=== PATIENT | male | born 1955 | race Caucasian/White ===

== ENCOUNTER 2016-11-10 09:37 | Inpatient (IN) | payer OTHER ==
[2016-11-10] VITALS (8 sets, daily range): BP systolic 72–185; BP diastolic 47–120
[~2016-11-10] VITALS: Ht 172.7 cm; Wt 86.0 kg
--- NOTE | 2016-11-10 09:51 | NUR ---
PT BIBA FROM [facility] FOR SEIZURE LIKE ACTIVITY AND VOMITIING BLOOD, PT WENT TO THE [facility] AND PER MEDICS WHEN THEY ARRIVED THERE WAS >500 ML BRIGHT RED EMESIS ON THE FLOOR, PT ALSO REPORTS VOMITING PRIOR TO GOING TO [facility], PT REPORTS VOMITING LARGE AMOUNTS OF BLOOD, PER MEDICS PT HAD SEIZURE LIKE ACTIVITY PRIOR TO THEIR ARRIVAL, THEY WITNESSED THIS ON SCENE, REPORT PT AAO4, EYES WOULD ROLL BACK AND HE WOULD "TENSE UP" AND SHAKE, PT WOULD RETURN TO CONSCIOUSNESS QUICKLY; ON ED ARRIVAL PT AAO4, NO ACUTE DISTRESS, HAD AN EPISODE OF SEIZURE LIKE ACTIVITY, EYES ROLLED BACK AND ARMS TENSED UP, LAST ED APPROXIMATELY 10 SECONDS; PT HAS HX OF HEP C AND END STAGE LIVER DISEASE, PT ANSWERS ALL QUESTIONS APPROPRIATELY, CIM GUARDS AT BEDSIDE, PT CALM AND COOPERATIVE, NSR ON CINDER MAN, DR. MAYEN PERFORMED MSE
--- NOTE | 2016-11-10 09:56 | NUR ---
REPORT TO MIGUEL MENDES TO ASSUME CARE
[2016-11-10] MEDS ORDERED: LISINOPRIL40 MG PO (10:00)
[2016-11-10] MEDS ORDERED: PROPRANOLOL HCL20 MG PO (10:00)
[2016-11-10] MEDS ORDERED: ONMEL200 MG PO (10:01)
[2016-11-10] MEDS ORDERED: FUROSEMIDE40 MG PO (10:01)
[2016-11-10] MEDS ORDERED: LACTULOSE10 GM/152 PO (10:02)
[2016-11-10 10:12] LABS: BASOPHIL % 0.4 % (0-2)
[2016-11-10 10:13] LABS: PLATELET COUNT 123 x10^3mcL (130-400); RED CELL DISTRIBUTION WIDTH 15.1 % (11.5-14.5)
--- NOTE | 2016-11-10 10:13 | NUR ---
PT TAKEN TO CT VIA RASHA.
[2016-11-10 10:34] LABS: CK-MB 0.8 ng/mL (0-3.6)
[2016-11-10 10:48] LABS: CALCIUM 7.7 mg/dL (8.5-10.1); CARBON DIOXIDE 25.3 mmol/L (21-32); CHLORIDE SERUM 107 mmol/L (98-107); CREATININE SERUM 0.8 mg/dL (0.7-1.3); GFR1 > 60 mL/min; GLUCOSE SERUM 137 mg/dL (74-106); SODIUM SERUM 141 mmol/L (136-145)
[2016-11-10 10:54] LABS: ALKALINE PHOSPHATASE 74 U/L (46-116); ALT/SGPT 18 U/L (16-63); AMYLASE 42 U/L (25-115); AST/SGOT 25 U/L (15-37); BILIRUBIN TOTAL 0.91 mg/dL (0.20-1.00); HDL CHOLESTEROL 37 mg/dL (40-60); LACTIC DEHYDROGENASE (LDH) 175 U/L (100-190); LIPASE 160 IU/L (73-393); MAGNESIUM 1.6 mg/dL (1.8-2.4); T4(THYROXINE) 7.3 ug/dL (4.7-13.3)
--- NOTE | 2016-11-10 10:57 | NUR ---
RT AT BEDSIDE FOR ABG DRAW.
[2016-11-10 11:07] LABS: ALBUMIN 2.5 g/dL (3.4-5.0); CHOLESTEROL 85 mg/dL (<200)
[2016-11-10 11:18] LABS: TOTAL PROTEIN, SERUM 6.1 g/dL (6.4-8.2)
--- NOTE | 2016-11-10 11:29 | NUR ---
ASSISTED PT ONTO BEDSIDE COMMODE, REPORTS NEEDING TO HAVE A BM, PT DENIES ANY DIZZINESS
--- NOTE | 2016-11-10 11:36 | NUR ---
REPORT CALLED TO JAIMEE MENDES, SHE WILL ASSUME CARE PRIMARY RN POST TRASNFER.
--- NOTE | 2016-11-10 11:40 | NUR ---
PT HAD BM, DARK LOOSE BLOOD
[2016-11-10 12:04] LABS: microscopic required? YES; urine erythrocyte TRACE (NEGATIVE)
[2016-11-10 12:12] LABS: AMPHETAMINE QUAL UR NONE DETECTED (NEG <=1000)
--- NOTE | 2016-11-10 13:52 | NUR ---
ORDERS FROM DR MARKHAM VIA TELEPHONE AND READ BACK. SANDOSTATIN DRIP 50MCG/HR. LACTOLOSE 30 ML THREE TIMES A DAY
--- NOTE | 2016-11-10 15:53 | NUR ---
PATIENT REPORTS NAUSE AND EMESIS X1 WHILE USING THE RESTROOM
--- NOTE | 2016-11-10 15:58 | NUR ---
LAB CALLED WITH CRITICAL LACTIC ACID, 2.1.DOCTOR
--- NOTE | 2016-11-10 16:15 | NUR ---
SPOKE TO AND MADE HIM AWARE OF PT CURRENT CONDITION OF VOMITING BLOOD AND PT BECOMING MORE WEAK. WITH ORDER EGD STAT PER AND TO INCREASE SANDOSTATIN DRIP TO 100MCG/HR. CALLED NURSING STOCK TURNER FOR THE EGD STAT PROCEDURE PER 'S ORDER.
--- NOTE | 2016-11-10 16:16 | NUR ---
PATIENT RECEIVED FROM ED, ALERT AND ORIENTED, REPORTS NO NAUSEA AT THIS TIME. LUNG SOUNDS SOUNDS CTA. BS ACTIVE, REPORTS DARK BLOOD IN STOOL, LOOSE STOOL. REPORTS NO PROBLEM URINATING IV RAC AND RH WNL. NO DISTRESS NOTED AT THIS TIME. REPORTS PAIN 7/10, GIVEN PAIN MEDICATION
--- NOTE | 2016-11-10 16:25 | NUR ---
RAPID RESPONSE WAS CALLED DUE TO PT BECAME UNRESPONSIVE WHILE THE STAFF WAS AT THE BEDSIDE WHILE OBTAINING CONSENT FOR EGD PROCEDURE. CALLED TO (ATTENDING) MADE HIM AWARE THAT PT IS UNRESPONSIVE AND VOMITING BLOOD AND MADE HIM AWARE TOO THAT WILL DO EGD STAT AND HE SAID OKAY TO TRANSFER PT TO ICU. 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 IV BOLUS INITIATED DUE TO LOW BP-67/49 HR-71 MAP-55 [id number]%ON 2L/NC PER 'S ORDER WHICH HE WAS AT THE BEDSIDE DURING THIS INCIDENT. PT IS GOING TO ICU BED4. AIRAM MENDES ASSIGNED TO THIS PT GAVE REPORT TO EMETERIO CHARGE NURSE. ENDORSED CARE ACCORDINGLY.
--- NOTE | 2016-11-10 16:34 | NUR ---
RECIEVED PT FROM MST 226 B TO ICU 4 S/P RAPID RESPONSE, SEE RAPID RESPONSE RECORD IN CHART. PT AWAKE/ALERT AND SPEAKING CLEARLY AT THIS TIME. 1L NS BOLUS AND SANDOSTATION AT 50 ML/HR INFUSING AT THIS TIME. IV SITE TO RAC AND RIGHT HAND PATENT WITH NO INFILTRATION NOTED. DR. ORNELAS IN UNIT. PER DR. ORNELAS PT TO BE INTUBATED.
--- NOTE | 2016-11-10 16:37 | NUR ---
RAPID RESPONSE CALLED ON PATIENT AFTER EMESIS x2 OF LARGE AMOUNT OF RED BLOOD, [address] MARKHAM AND [address] DIETZ NOTIFIED. PATIENT TRANSFERED TO ICU, REPORT GIVEN TO EMETERIO
--- NOTE | 2016-11-10 16:54 | NUR ---
165-DR. GONZALEZ ARRIVED TO UNIT FOR INTUBATION. 1651- ETOMIDATE 10 MG GIVEN IVP PER DR. GONZALEZ VERBAL ORDERS. 1652-SUCC 100 MG GIVEN IVP PER DR. GONZALEZ VERBAL ORDERS. 165- PT SUCCESSSFULLY INTUBATED AT THIS TIME WITH POSITIVE COLOR CHANGE NOTED. ETT 7.5, 23 CM AT LIPLINE. VS POST INTUBATION: HR 99 RR 24 153/95 MAP 115 O2 100%
--- NOTE | 2016-11-10 17:10 | NUR ---
SPOKE WITH DR. DIETZ VIA TELEPHONE AT THIS TIME AND INFORMED HIM OF PT'S TRANSFER TO ICU. STANDBY TELEPHONE ORDER FOR SOFT WRIST RESTRAINTS GIVEN BY DR. DIETZ. NO FURTHER ORDERS AT THIS TIME. WILL CONT TO MONITOR.
--- NOTE | 2016-11-10 17:13 | NUR ---
PT WITH NO SEDATION AT THIS TIME, PENDING SEDATION ORDER FROM DR. ORNELAS. PT AGGITATED AND REACHING FOR ETT. BILAT SOFT WRIST RESTRAINTS APPLIED AT THIS TIME. WILL CONT TO MONITOR CLOSELY.
--- NOTE | 2016-11-10 17:21 | NUR ---
ATIVAN DRIP INITIATED AT THIS TIME PER PROTOCOL. ATIVAN DRIP INFUSING AT 1MG/HR AT THIS TIME. WILL CONT TO MONITOR AND TITRATE NEEDED. PT IN CLEAR VIEW OF NURSES STATION.
--- NOTE | 2016-11-10 17:48 | NUR ---
DR. MARKHAM AND GI TEAM AT BEDSIDE FOR EGD. PT BOLUSED WITH ATIVAN 1MG IV PER [address]. MARKHAM'S VERBAL ORDERS. WILL CONT TO MONITOR.
--- NOTE | 2016-11-10 18:08 | NUR ---
REPORT GIVEN TO STACI MENDES FOR CONTINUITY OF CARE AT THIS TIME.
--- NOTE | 2016-11-10 18:08 | NUR ---
RECEIVED REPORT FROM CINTHYA STORM, ALL QUESTIONS ADDRESSED, WILL ENDORSE CARE. DR MARKHAM AT BEDSIDE PERFORMING EGD, WILL CONTINUE TO MONITOR
--- NOTE | 2016-11-10 19:26 | NUR ---
PT ON VENT PRESSURE/VENT MODE FIO2 100, VT 550, PEEP 5, RR 14. SANDOSTATIN AND ATIVAN INFUSING. PT RESPONDS TO PAINFUL STIMULI, PUPILS 2MM SLUGGISH. GENERALIZED WEAKNESS, FULL PASSIVE ROM, DAN ACTIVE DUE TO SOFT RESTRAINTS. NO S/S OF HEADACHE. TRACHEA MIDLINE, NO DRAINAGE EENT, NO COUGH OR SMALL SECRETIONS SUCTIONED BLOOD TINGED. ORAL CARE PROVIDED. RESPIRATIONS EQUAL AND UNLABORED. LUNGS RHONCHI BUL, DIM BLL. HR 89, BP 151/119, MAP 133, CHEST WALL STABLE, S1S2 AUSCULTATED, NO CP DIZZINESS, OR SYNCOPE. SKIN APPROPRIATE FOR ETHNICITY, WARM AND DRY, CAP REFILL <3 PULSES MODERATE, NO EDEMA NOTED. NO CONTRACTURES OR DEFORMITIES. NPO, NO N/V. ABD FIRM ROUND NONTENDER, NO BM. NO PENIAL EDEMA OR DRAINAGE. UNABLE TO ASSESS MENTAL STATUS. WILL CONTINUE TO MONITOR.
--- NOTE | 2016-11-10 19:55 | NUR ---
ATIVAN TITRATED TO 4MG, WILL CONTINUE TO MONITOR
--- NOTE | 2016-11-10 19:57 | NUR ---
PT VOMMITED X2 BLOODY, PT CLEANED GOWN AND LINEN CHANGED, ZOFRAN AND MORPHINE ADMINISTERED, WILL CONTINUE TO MONITOR.
--- NOTE | 2016-11-10 20:41 | NUR ---
FIO2 TITRATED TO 60, RT AT BEDSIDE, WILL CONTINUE TO MONITOR
--- NOTE | 2016-11-10 22:18 | NUR ---
BP LOW DR DIETZ NOTIFIED, TELEPHONE ORDER NS 500ML BOLUS, D5NS @100ML/HR, DC D5 1/2 @ 40ML/HR, WILL CONTINUE TO MONITOR.
--- NOTE | 2016-11-10 23:45 | NUR ---
PT HAD DARK LOOSE BLOODY STOOL, WILL CONTINUE TO MONITOR
[2016-11-11] VITALS (18 sets, daily range): BP systolic 85–195; BP diastolic 45–110
--- NOTE | 2016-11-11 02:50 | NUR ---
20g IV STARTED L HAND, PATENT AND FLUSHING, WILL CONTINUE TO MONITOR.
--- NOTE | 2016-11-11 03:23 | NUR ---
1 UNIT PRBC'S INFUSING, PER ORDERS, NO S/S OF ADVERSE RX, WILL CONTINUE TO MONITOR.
--- NOTE | 2016-11-11 03:41 | NUR ---
ATIVAN TITRATED TO 10ML/HR, WILL CONTINUE TO MONITOR
--- NOTE | 2016-11-11 05:24 | NUR ---
F/C INSERTED, LASIX ORDERED AFTER BLOOD TRANSFUSION COMPLETES, WILL CONTINUE TO MONITOR.
--- NOTE | 2016-11-11 05:55 | NUR ---
PRBC FINISHED INFUSING, NO S/S OF REACTION, LASIX GIVEN ORDERED AFTER INFUSION, WILL CONTINUE TO MONITOR.
--- NOTE | 2016-11-11 07:05 | NUR ---
REPORT GIVEN TO CINTHYA VILLA, ALL QUESTIONS ADDRESSED, WILL ENDORSE CARE
--- NOTE | 2016-11-11 07:10 | NUR ---
PAULA RECIEVED NOC SHIFT CINTHYA SMALL, UPDATED PROVIDED ALL QUESTIONS ANSWERED ALL CONCERNS ADDRESSED. WILL ASSUME CARE AND ASSESS PT SHORTLY.
--- NOTE | 2016-11-11 07:20 | NUR ---
PATIENT IS NOVERBAL DUE TO INTUBATION, EYES OPEN TO PAINFUL STIMULI, LOCALIZES TO PAIN, PUPILS 3MM BRISK BILATERAL, NO HX OF ALZHEIMERS OR CVA. PT IS SEDATED ON ATIVAN AT 1MG/HR. RSS OF 1 NOTED. PATIENT IS ORALLY INTUBATED, NO SCLERAL EDEMA NOTED, NO IJ INPLACE, TRACHEA MIDLINE. NGT IN PLACE AGAINST L NARE. ETT IS 7.5, 23LL, PATIENT IS ON VENT ON PRVC WITH THE FOLLOWING SETTINGS RATE OF 14, Vt 550, PEEP 5, FIO2 60, LUNG SOUNDS ARE FINE CRACKLES BILATERALLY. CHEST RISE SYMMETRICALLY. S1 AND S2 NOTED PATIENT IS IN NSR, CHEST WALL IS STABLE. SKIN COLOR IS CONSISTENT WITH ETHNICITY, SKIN IS WARM AND DRY, CAP REFILL IS <3 SEC TO ALL EXTREMITIES, PERIPHERAL PULSES ARE MODERATE TO BUE, WEAK TO BLE. NO EDEMA NOTED. PATIENT HAS GENERALIZED WEAKNESS. ACTIVE/LIMITED ROM TO ALL EXTRIMITIES, SOFT WRIST RESTRAINTS TO BUE, HANDCUFF NOTED TO BLE, NO OBVIOUS CONTRACTURE/DEFORMITIES NOTED. PT IS TURNED Q2. PATIENT IS NPO AT THIS TIME, NO N/V NOTED AT THIS TIME. BOWEL SOUNDS ACTIVE IN ALL 4 QUADRANTS, ABDOMEN IS SOFT AND ROUND. BLOODY STOOL NOTED AT THIS TIME. PATIENT HAS BAE IN PLACE, NO URIN NOTED. NO SCROTAL EDEMA OR PENIL DISCHARGE NOTED. SKIN IS INTACT, PT HAS POOR FAMILY DYNAMICS AND CURRENTLY INCARCERATED. UNABLE TO FULLY ASSESS DUE TO INTUBATION.
--- NOTE | 2016-11-11 07:47 | NUR ---
SPOKE WITH ROSALEE IN GI LAB AND ASKED FOR DR MARKHAM TO CALL UNIT ONCE HE ARRIVES TO REPORT CXR RESULTS. AWAITING RETURN PHONE CALL AT THIS TIME.
[2016-11-11 07:48] LABS: CALCIUM 7.1 mg/dL (8.5-10.1); CARBON DIOXIDE 22.3 mmol/L (21-32); CHLORIDE SERUM 111 mmol/L (98-107); CREATININE SERUM 0.9 mg/dL (0.7-1.3); GFR1 > 60 mL/min; GLUCOSE SERUM 157 mg/dL (74-106); POTASSIUM SERUM 4.7 mmol/L (3.5-5.1); SODIUM SERUM 140 mmol/L (136-145)
[2016-11-11 07:52] LABS: BASOPHIL % 0.8 % (0-2)
[2016-11-11 07:55] LABS: RED CELL DISTRIBUTION WIDTH 14.9 % (11.5-14.5)
[2016-11-11 07:56] LABS: PLATELET COUNT 79 x10^3mcL (130-400)
--- NOTE | 2016-11-11 08:00 | NUR ---
SPOKE WITH DR MARKHAM AND PROVIDED PATIENT UPDATE. DISCUSSED RESULTS OF CHEST XRAY. NEW ORDERS RECEIVED. WILL CARRY OUT ORDERS. WILL CONTINUE TO MONITOR.
--- NOTE | 2016-11-11 08:20 | NUR ---
[facility] FOR [facility] AND BREATHING TREATMENT.
--- NOTE | 2016-11-11 08:25 | NUR ---
TITRATED FIO2 TO 50% RN WARREN AWARE, WILL CONTINUE TO MONITOR.
--- NOTE | 2016-11-11 08:27 | NUR ---
ATIVAN INCREASED TO 2 MG/HR DUE TO PATIENT BEING INCREASINGLY RESTLESSS AND MOVING LIMBS REPEATEDLY.
--- NOTE | 2016-11-11 09:20 | NUR ---
PATIENT WITH HR 139-140. SPOKE WITH DR LEYVA AND REPORTED. NEW ORDERS RECEIVED. ADMINISTER ATIVAN 1 MG IVP. LEVOPHED TITRATED TO 2 MCG AT THIS TIME FOR BP 138/69. WILL CONTINUE TO MONITOR.
--- NOTE | 2016-11-11 10:10 | NUR ---
TITRATED FIO2 TO 40% RN WARREN AWARE, WILL CONTINUE TO MONITOR.
--- NOTE | 2016-11-11 10:30 | NUR ---
DR. MUÑOZ BEDSIDE. ATIVAN TO BE DECREASED TO 1 MG/HR. ULTRASOUND BLE TO BE DONE THEN SCD'S TO BE PLACED. FENT AND VERSED TO BE ORDERED. ATIVAN TO BE DC'D.
--- NOTE | 2016-11-11 10:30 | NUR ---
DR. MUÑOZ AT BED SIDE AND PLACED PT ON PSV 12 CPAP 5 WITH RN WARREN AND MYSELF AT BED SIDE, VERBAL ORDER GIVEN FOR ABG IN ONE HOUR AND WITH WEANING PARAMETERS TO FOLLOW. PT IN NO RESP DISTRESS ON PSV 12 CPAP, WILL CONTINUE TO MONITOR.
--- NOTE | 2016-11-11 11:00 | NUR ---
PER TONI, BAE TO BE ADVANCED. BLADDER SCANNER DONE AND 200 ML OF CC NOTED.
--- NOTE | 2016-11-11 12:00 | NUR ---
200 ML OF BLOODY URINE NOTED, BLADDER SCANNER SHOWS 15 ML NOW.
--- NOTE | 2016-11-11 14:38 | NUR ---
ULTRASOUND BEDSIDE FOR BLE ARTERIAL AND VENOUS.
--- NOTE | 2016-11-11 16:03 | NUR ---
Initial Nutrition Assessment Dx: Endstage liver disease PMHx: Hepatitis C, Hyperlipedemia, Anemia, Cirrhosis, PSHx:none reported Labs: (11/11) BH, Ca:7.1L, Lactic acid:2.1H, H/H:8/24L (11/10) Alb:2.5L, HDL: 37L, M.6L, Ammonia: 31 WNL Meds: Cephulac, D5NS, Erythromycin, Protonix, Zofran Diet: NPO due to GI bleeding PO Intake:no PO intake recorded Ht: 68in,5'8" Wt: 190#,86.18kg BMI:28.9kg/m2 (overweight) IBW: 154#,70kg %IBW:123 % UBW:unable to obtain Age:61 y/o male Food Allergies: unable to obtain Skin:intact Giovanni:15 Edema:None GI:active bowel souds. Last BM: 11/11 bloody stool Pt admitted with GI bleed, end stage liver/cirrhosis,anemia secondary to blood loss, metabolic encephalopathy r/o seizure, pneumonia and ascites per doctor's note. During visit, observed pt +intubated to vent support with NGT to left nare, sedated on Ativan. Per RN, pt is NPO due to GI bleed. Pt had an EGD done yesterday with varicies banded. Pt is till passing bloody stool. Pt's NGT is in esophagus, per Dr. Jasmine. Problem with: N:No V: No D:No C:No Problems with: Chewing+swallowing: pt with NGT Current appetite: N/A Recent wt change:unable to obtain %wt change:N/A Vitamin/Supplement use: unable to obtain Special diet at home:pt incarcerated Physical activity: unable to obtain Education: not appropriate at this time due to pt intubated Estimated Nutritional Needs Based on actual body weight 86kg Ventilator in L/rafa:11.3. Temperature: 37.2 C Energy: 1923kcalkcal/d ([id number]) Protein:69-103 g/d (.8-1.2g/kg for cirrhosis with encephalopathy) Fluid: 1.2-1.5L/day for ascites or per doctor Nutrition Diagnosis 1. Inadequate oral intake related to s/p intubation secondary to airway protection as evidenced by no TF order initited. Intervention 1. Consider advancing diet per MD if /when medically appropriate 2.Enteral nutrition support is not appropriate at this time due to NGT in esophagus. 3.If/when medically feasible, and if nutrition support is warrented. Consider initiation of TF of Nutren Pulomonary via NGT at goal rate of 50ml/hr. This provides 1800kcal (meets 94% caloric needs) and 82g pro (meets 80% pro needs) and 938ml fluid. Monitor/Evaluate Goal: NPO<5-7 days, diet advancement Monitor: NPO status, diet advancement, Labs, GI function F/U in 2-3 days as high risk: 11/13-
--- NOTE | 2016-11-11 16:30 | NUR ---
TITRATED FIO2 TO 35% RN WARREN AWARE, WILL CONTINUE TO MONITOR.
--- NOTE | 2016-11-11 17:05 | NUR ---
PATIENT BLOOD PRESSURE 82/59(67). BAE REMOVED AND BLOODY FLUID NOTED TO BE COMING FROM PENIS. VERSED DECREASED TO 2 MG/HR AND FENT AT 2 MCG/KG/HR.
--- NOTE | 2016-11-11 17:09 | NUR ---
NITRO REMOVED AT THIS TIME DUE TO BP.
--- NOTE | 2016-11-11 17:11 | NUR ---
SPOKE WITH DR DIETZ AND REPORTED APPROX. 500-600 ML OF YEIMI RED COLORED DRAINAGE FROM BAE CATHETER. BAE REMOVED AT THIS TIME WITH LARGE CLOT NOTED AT END OF TIP. NEW ORDERS RECEIVED AT THIS TIME. WILL CONTINUE TO MONITOR.
--- NOTE | 2016-11-11 18:07 | NUR ---
FENTANYL LOWERED TO 1.5 MCG/KG/HR AND VERSED DECREASED TO 1 MG/HR DUE TO BP 83/57.
[2016-11-11 18:22] LABS: PLATELET COUNT 106 x10^3mcL (130-400); RED CELL DISTRIBUTION WIDTH 15.2 % (11.5-14.5)
--- NOTE | 2016-11-11 18:25 | NUR ---
PATIENT'S WBC 23.1 (TRENDING UP). TELEPHONE DR DIETZ AND REPORTED. NEW ORDERS RECEIVED FOR DR MARCANO CONSULT. WILL CONTINUE TO MONITOR.
--- NOTE | 2016-11-11 18:35 | NUR ---
PLACED PT BACK ON FULL SUPPORT VENT MODE PRVC CINTHYA KELLEY AWARE. PRVC VENT SETTING REMAIN UNCHANGED FROM INITIAL VENT CHECK THIS MORNING.
[2016-11-11 18:36] LABS: BAND NEUTROPHIL 3 % (0-10); BASOPHIL 0 % (0-2); METAMYELOCTE 2 % (0-2); MONOCYTE 1 % (0-7); SEGMENTED NEUTROPHILS 91 % (37-75)
[2016-11-11 18:40] LABS: PLATELET MORPHOLOGY PLATELETS DECREASED; ovalocyte/elliptocyte 1+; rbc morphology (normal/abnorm) ABNORMAL (NORMAL)
--- NOTE | 2016-11-11 19:05 | NUR ---
RECEIVED REPORT FROM CINTHYA KELLEY. ALL QUESTIONS AND CONCERNS ADDRESSED AT THIS TIME. PT IS ICU BED 4 IN SEMI MANDUJANO. ETT AND DOBB HELIO IN PLACE AND SECURE. IV'S IN THE RT HAND AND FA, PATENT AND FLUSHING WELL. PT IS ON QUALITY ASSURANCE COORDINATOR AND VS STABLE AT THIS TIME. PT IS ON SEDATION FENT AND VERSED. WILL CONTINUE TO MONITOR. BED LEFT IN THE LOWEST POSITION AND CALL LIGHT LEFT IN REACH. SKILLED NURSING GAURDS AT BEDSIDE.
--- NOTE | 2016-11-11 19:21 | NUR ---
REPORT GIVEN TO NOC SHIFT CINTHYA BAH. UPDATES PROVIDED, ALL QUESTIONS ANSWERED ALL CONCERNS ADDRESSED. WILL ENDORSE CARE.
--- NOTE | 2016-11-11 19:44 | NUR ---
DR BEVERLY AT BEDSIDE TO INSERT BAE. PATENT AND DRAINING TO GRAVITY.
--- NOTE | 2016-11-11 20:07 | NUR ---
FENT TITRATED DOWN FROM 1.5 MCG TO 0.5MCG. RSS 5.
--- NOTE | 2016-11-11 20:13 | NUR ---
RT BENSON AT BEDSIDE FOR BREATHING TX.
--- NOTE | 2016-11-11 20:28 | NUR ---
DR FLANNERY CALL UNIT. ALL QUESTIONS AND CONCERNS ADDRESSED.
--- NOTE | 2016-11-11 22:10 | NUR ---
VERSED TITRATED DOWN 0.5MG TO 0.25MG. RSS 5.
--- NOTE | 2016-11-11 22:31 | NUR ---
FENT TITRATED DOWN FROM 0.5MCG TO 0.25MCG. RSS 5.
--- NOTE | 2016-11-11 22:34 | NUR ---
DR FLANNERY AT BEDSIDE. ALL QUESTIONS AND CONCERNS ADDRESSED AT THIS TIME. ORDERED VANCOMYCIN 1GM STARTING AND PHARMACY TO FOLLOW.
--- NOTE | 2016-11-11 23:00 | NUR ---
FENT TITRATED UP FROM 0.25MG TO 0.5MCG, RSS 2. VERSED TITRATED UP FROM 0.25MG TO 0.5MG, RSS 2.
[2016-11-12] VITALS (16 sets, daily range): BP systolic 80–123; BP diastolic 50–76
--- NOTE | 2016-11-12 02:06 | NUR ---
REPORT GIVEN TO CINTHYA JENKINS, ALL QUESTIONS AND CONCERNS ADDRESSED AT THIS TIME. ALL CARE ENDORSE.
[2016-11-12 05:43] LABS: CALCIUM 7.2 mg/dL (8.5-10.1); CREATININE SERUM 1.7 mg/dL (0.7-1.3); POTASSIUM SERUM 4.2 mmol/L (3.5-5.1)
[2016-11-12 05:51] LABS: BASOPHIL % 0.4 % (0-2)
[2016-11-12 05:52] LABS: PLATELET COUNT 82 x10^3mcL (130-400); RED CELL DISTRIBUTION WIDTH 15.6 % (11.5-14.5)
[2016-11-12 05:54] LABS: rbc morphology (normal/abnorm) ABNORMAL (NORMAL)
--- NOTE | 2016-11-12 06:00 | NUR ---
PATIENT IS RESTLESS, CONTINOUSLY TAPPING ON SIDERAIL, FREQUENTLY MOVING, FENT TITRATED TO 0.89 MCG/KG/HR, AND VERSED 0.9 MG/HR. WILL CONTINUE TO MONITOR.
--- NOTE | 2016-11-12 07:20 | NUR ---
REPORT GIVEN TO MIN RN, ALL CONCERNS AND QUESTIONS ADDRESSED. ALL CARE ENDORSED.
--- NOTE | 2016-11-12 07:30 | NUR ---
RECIEVED REPORT FROM AFUA MENDES AT [facility]. WILL CONTINUE CARE.
--- NOTE | 2016-11-12 07:52 | NUR ---
PATIENT WITH LOW BP 79/57 MAP 65. CLONADINE TOPICAL PATCH REMOVED FROM LEFT DELTOID AT THIS TIME. WILL CONTINUE TO MONITOR.
--- NOTE | 2016-11-12 08:00 | NUR ---
PT IS SEDATE FENTANYL AT 0.89MCG/KG/HR, VERSED AT 0.9MG/HR RSS 5. PT REPONSE TO TACTILE RESPONSE. GCS OF 8. BL PUPILS EQUAL AND NONREACTIVE TO LIGHT 1MM, FIXED. SCLEARA EDEMA TO BL EYES. HELIO TO L NARES IN PLACE. NO DRRAINAGE NOTED FROM EENT. S12 PRESENT, NO S/S OF CHEST PAIN. 7.5 ETT TO PRVC AC VENT. ON 35%FIO2, LPM 24, RATE 14, VT 550, PEEP 5. VAP CARE PROVIDED AND SUCTIONED PT MODERATE YELLOWISH PHLEGM OUTPUT. FINE CRACKLE TO BL BASES OF LUNGS AND DIMINISH LUNG SOUNS TO BL UPPER LOBES. SYMMETRIC CHEST RISE. NO SIGNS OF SOB OR ACUTE DISTRESS. BS HYPOACTIVE X4, ABD DISTENDED AND FIRM. NO SIGNS OF FACIAL GRIMACING WHEN PALPATING ABD. PT HAS COFFEE GROUND BM. PT HAS BRIGHT RED PENILE DISCHARGE. BAE CATH DRAINING WELL BY GRAVITY, TEA COLOR URINE. PT HAS BLOOD TRANSFUSING AT 150ML/HR AND SANDOSTATIN INFUSING AT 50ML/HR TO RFA. IV SITE WNL. BED AT LOW AND CALL LIGHT WITHIN REACH. 2 GAURDS AT BEDSIDE.
--- NOTE | 2016-11-12 08:10 | NUR ---
PT IS RESTLESS TIATRATE VERSED TO 1MG/HR AND TIATRATE FENTANYL TO 1MCG/KG/HR. BP 93/56 MAP 70.
--- NOTE | 2016-11-12 08:22 | NUR ---
DR. MARKHAM AT BEDSIDE ASSESSING PT AT THIS TIME.
--- NOTE | 2016-11-12 08:28 | NUR ---
RUBY RT AT BEDSIDE IMPLEMENTING BREATHING TX.PT TOLERATING WELL.
--- NOTE | 2016-11-12 08:40 | NUR ---
PLACED PT ON CPAP TRIALS WITH PSV 12 [address] CPAP [address] TONI MON, RN CHEL AND CINTHYA RAYA MADE AWARE. WILL CONTINUE TO MONITOR.
--- NOTE | 2016-11-12 08:46 | NUR ---
SPOKE WITH DR MARKHAM AND REPORTED LOW BP AND INFORMED HIM THAT CLONADINE PATCH REMOVED THIS AM.
--- NOTE | 2016-11-12 09:53 | NUR ---
RUBY RT AT BEDSIDE TO ADJUST VENT SETTING TO CPAP. PT TOLERATING WELL, NO SIGNS OF SOB OR ACUTE DISTRESS.
--- NOTE | 2016-11-12 09:55 | NUR ---
BLOOD TRANSFUSION COMPLETED. BP 85/52 HR 87 TEMP 97.6 TE, RR 14, 100% PO2SAT. NO SIGNS OF CHILLS OR ADVERSE REACTIONS.
--- NOTE | 2016-11-12 10:19 | NUR ---
PT TOLERATING CPAP WELL 100%O2SAT. NO SIGNS OF SOB OR ACUTE DISTRESS. SYMMETRIC CHEST RISE.
--- NOTE | 2016-11-12 10:47 | NUR ---
START INFUSION OF SECOND UNIT OF BLOOD AT 1035. PT HAS NO SIGNS OF CHILLS OR ADVERSE REACTION. WILL CONTINUE TO MONITOR.
--- NOTE | 2016-11-12 11:50 | NUR ---
PT IS SEDATE WITH FENTANYL AT 1MCG/KH/HR AND VERSED AT 1MG/HR RSS 5. BL PUPILS EQUAL AND REACTIVE TO LIGHT 2MM, SLUGGISH. SCLERA EDEMA TO BL EYES. NO DRAINAGE NOTED FROM EENT. TRACHEA AT MIDLINE, NO SIGNS OF JVD. DOBB HELIO IS IN PLACE TO L NARES. 7.5 ETT TO VENT. PT ON AC MODE AT THIS TIME. CPAP SETTINGS AT 35% FIO2, LPM 24, RATE 8, VT 550, PT'S VT 870, PEEP 5, PRESSURE SUPPORT 12. VAP CARE PROVIDED. SUCTION MOD AMOUNT OF BLOOD TINGED PHLEGM. SYMMETRIC CHEST RISE. CRACKLES TO BL BASES OF LUNGS AND DIMINISH TO BL UPPER LOBES. NO SIGNS OF SOB OR ACUTE DISTRESS. BS HYPOACTIVE X4, ABD IS DISTENDED AND FIRM. NO SIGNS OF FACIAL GRIMACING WHEN PALPATING ABD. BRIGHT RED PENILE DISCHARGE. BAE CATH DRAINING WELL BY GRAVITY, TEA COLOR URINE. EDEMA NOTED TO BLE, ELEVATED WITH 1 PILLOW TO DECREASE SWELLING. ELEVATED WITH [address] BED AT LOW AND CALL LIGHT WITHIN REACH. 2 GUARDS AT BEDSIDE.
--- NOTE | 2016-11-12 13:15 | NUR ---
DR MUÑOZ AT BEDSIDE TO ASSESS PATIENT. UPDATES PROVIDED INCLUDING PATIENT WITH ONGOING SEIZURE ACTIVITY.
--- NOTE | 2016-11-12 13:25 | NUR ---
AT BEDSIDE TO ASSESS AND UPDATE PLAN OF CARE.
--- NOTE | 2016-11-12 13:30 | NUR ---
DR DIETZ AT BEDSIDE. PATIENT UPDATE GIVEN INCLUDING PATIENT WITH ONGOING SEIZURE ACTIVITY. NEW ORDERS RECEIVED. WILL CARRY OUT ORDERS. WILL CONTINUE TO MONITOR.
--- NOTE | 2016-11-12 14:15 | NUR ---
RUBY RT AT BEDSIDE. PT IS BACK ONTO AC MODE 35%FIO2, RATE 14, VT 550, PEEP 5.
--- NOTE | 2016-11-12 14:17 | NUR ---
DR. KIMBALL AND DR. RAM AT BEDSIDE [facility] STERILE TECHNIQUES FOR CENTRAL LINE INSERTIONS.
--- NOTE | 2016-11-12 14:54 | NUR ---
TIME OUT AT BEDSIDE, CONFIRMED PT'S NAME, ID#, [facility] SITE. DR. BRADSHAW AND DR. RAM AND [employer] TE[employer]ER AT BEDSIDE.
--- NOTE | 2016-11-12 16:02 | NUR ---
PORTABLE XRAY AT BEDSIDE TO CONFIRM PLACEMENT.
--- NOTE | 2016-11-12 16:19 | NUR ---
RUBY RT AT BEDSIDE IMPLEMENTING BREATHING TX. PT TOLERATING WELL, NO SIGNS OF SOB OR ACUTE DISTRESS.
--- NOTE | 2016-11-12 16:48 | NUR ---
PT IS SEDATED WITH FENTANYL AT 0.75MCG/KG/HR AND VERSED AT 1MG/HR. PT WITHDRAWLS FROM PAINFUL STIMULIS. GCS 8. BL PUPILS EQUAL AND REACTIVE TO LIGHT 2MM, SLUGGISH. SCLERA EDEMA TO BL EYES. NO DRAINAGE TO EENT. LIJ INTACT, DRESSING CDI. AWAITING FOR ORDERS TO USE CENTRAL LINE. 7.5 ETT TO VENT. DOBB HELIO TO L NARES IN PLACE. PT ON AC MODE. 35%FIO2, LPM 24, RATE 14, VT 550, PEEP 5. COARSE CRACKLE THROUGHOUT LUNG CHUN. SYMMETRIC CHEST RISE. NO SIGNS OF SOB OR ACUTE DISTRESS. BS HYPOACTIVE X4 QUADRANTS. NO SIGNS OF BM AT THIS TIME. ABD IS FIRM AND DISTENDED. NO SIGNS OF FACIAL GRIMACING WHEN PALPATING ABD. BAE CATH DRAINING WELL BY GRAVITY. RED DISCHARGE TO PENIS. CAP REFILL <3 SEC. SCD TO BLE. EDEMA TO BLUE. WEAK RADIAL AND PEDAL PULSE. NO SIGNS OF FACIAL GRIMACING. BED AT LOW AND CALL LIGHT WITHIN REACH. 2 GAURDS AT BEDSIDE.
--- NOTE | 2016-11-12 18:16 | NUR ---
GOWN AND LINES ARE CHANGED WELL A PARTIAL BATH GIVEN TO PT. PROVIDED BAE CARE. PT HAD A COFFEE GROUND LIKE BM. PT'S BUTTOCK SKIN IS INTACT.
--- NOTE | 2016-11-12 19:29 | NUR ---
RECEIVED PT OPENING EYES TO NAME CALLING BUT DOES NOT FOLLOW COMMANDS.SEDATED WITH FENTANYL .75 MCG/KG/H AND VERSED 1 MG/H INFUSING.CARDIAC SCOPE SHOWS SR HR 83 NO ECTOPIES.INTUBATED ORALLY ON FIO2 35% AC MODE RATE 14 VT 550 PEEP 5 TRIGGERING VENT ALARM HIGH PIP;O2 SAT 100%.LEFT IJ TLC WITH IVF D5NS AT 75 ML/H AND SANDOSTATIN 50 ML/H INFUSING.LEFT NARES DOBBHOFF TUBE CLAMPED FOR MEDS.BAE CATHETER TO GRAVITY DRAINAGE BAG WITH ORANGE COLORED URINE.BILATERAL SOFT WRIST RESTRAINTS INPLACE PROTOCOL FOLLOWED.REPOSITIONED WITH PILLOW SUPPORT ON BACK AND BILATERAL HELLS OFFLOADED.CIM GUARDS AT BEDSIDE.
--- NOTE | 2016-11-12 20:53 | NUR ---
RESTLESS AND TRIGERRING VENT ALARM FENTANYL GTT INCREASED TO 1 MCG/KG/H AND VERSED TO 1.5 MG/H MRSS 4.
[2016-11-13] VITALS (14 sets, daily range): BP systolic 88–148; BP diastolic 57–88; Ht 172.7 cm; Wt 86.0 kg
--- NOTE | 2016-11-13 00:18 | NUR ---
SEDATED WITH MRSS 5,ON FENTANYL AT 1.5 MCG/KG/H AND VERSED AT 1.5 MG/H.CARDIAC SCOPE SHOWS SR HR 80 NO ECTOPIES.ON SAME VENT SETTING O2 SAT 100% LESS SECREATIONS VIA ETT RR 15.ORAL CARE PER VAP PROTOCOL.INCONTINENT OF LARGE LOOSE DARK BLOODY STOOL,COMPLETE BED LINEN CHANGE AND FULL BATH WITH RICHARD BATH GIVE.BAE CARE PER PROTOCOL DONE.REPOSITIONED WITH PILLOW SUPPORT ON BACK AND BILATERAL HEELS OFF LOADED.CIM GUARDS AT BEDSIDE.
[2016-11-13 01:23] LABS: rbc morphology (normal/abnorm) ABNORMAL (NORMAL)
--- NOTE | 2016-11-13 01:35 | NUR ---
HGB 6.9 HCT 20 ORDERED 1 UNIT PRBC TO BE GIVEN BLOOD BANK AWARE.
--- NOTE | 2016-11-13 04:56 | NUR ---
RECEIVING 1 UNIT PRBC WITH NO UNTOWARD REACTION NOTED.REMAINS SEDATED ON FENTANYL 1 MCG/KG/H AND VERSED AT 1 MG/H WITH MRSS 5.ON SAME VENT SETTING WITH O2 SAT 100%.
--- NOTE | 2016-11-13 07:30 | NUR ---
RECEIVED REPORT FROM [facility] SHIFT CINTHYA CALIXTO. ALL QUESTIONS AND CONCERNS ADDRESSED AT THIS TIME. WILL ASSUME ALL CARE.
--- NOTE | 2016-11-13 07:56 | NUR ---
REPORT GIVEN TO KENIA.
--- NOTE | 2016-11-13 08:00 | NUR ---
AT BEDSIDE, UPDATES PROVIDED AT THIS TIME. PER LOWER IVF TO 50 ML/HR. PENDING POSSIBLE EXTUBATION INITIATE TUBE FEEDING IF NECESSARY. WILL CONTINUE TO MONITOR PT AT THIS TIME.
[2016-11-13 08:42] LABS: BASOPHIL % 0.3 % (0-2)
[2016-11-13 08:48] LABS: PLATELET COUNT 61 x10^3mcL (130-400); RED CELL DISTRIBUTION WIDTH 18.1 % (11.5-14.5)
[2016-11-13 08:52] LABS: CALCIUM 7.2 mg/dL (8.5-10.1); CARBON DIOXIDE 24.6 mmol/L (21-32); CHLORIDE SERUM 112 mmol/L (98-107); CREATININE SERUM 1.2 mg/dL (0.7-1.3); GFR1 > 60 mL/min; GLUCOSE SERUM 126 mg/dL (74-106); POTASSIUM SERUM 3.7 mmol/L (3.5-5.1); SODIUM SERUM 140 mmol/L (136-145)
--- NOTE | 2016-11-13 09:00 | NUR ---
ALL SEDATION TURNED OFF AT THIS TIME IN PREPARATION FOR CPAP TRIALS AND WEANING PARAMETERS.
--- NOTE | 2016-11-13 09:15 | NUR ---
LAB AT BEDSIDE FOR REPEAT H/H.
--- NOTE | 2016-11-13 09:30 | NUR ---
CPAP TRIAL INITIATED AT THIS TIME. PSV 12, PEEP +5, FIO2 35%. RR 8, VT 1127, O2 100%, HR 79, BP 117/70 Pt TOLERATING WELL, WILL MONITOR.
--- NOTE | 2016-11-13 10:05 | NUR ---
PT HAD MOD LOOSE DARK RED BM AT THIS TIME. PT CLEANSED AND PROVIDED NEW LINEN.
--- NOTE | 2016-11-13 12:31 | NUR ---
PT HAD SMALL LOOSE DARK TARRY STOOL. PT CLEANSED AND NEW LINEN PROVIDED.
--- NOTE | 2016-11-13 13:00 | NUR ---
CRESENCIO RT SPOKE TO , EXPLAINED TO THAT PT IS NOT FOLLOWING COMMANDS AND REFUSING TO DO WEANING PARAMETERS. NO EXTUBATION AT THIS TIME.
--- NOTE | 2016-11-13 13:10 | NUR ---
AT BEDSIDE. UPDATES PROVIDED. TO RECHECK AMMONIA LEVELS. NO NEW ORDERS AT THIS TIME.
--- NOTE | 2016-11-13 14:37 | NUR ---
PT WITH LARGE DARK BLOODY STOOL NOTED. PT CLEANSED AND NEW LINEN PROVIDED.
--- NOTE | 2016-11-13 15:41 | NUR ---
Follow-up Nutrition Assessment Dx:Enstage liver disease Labs: (11/13) B, BUN:27H, Ca:7.2L, H/H:7.8/24L (11/10) Ammonia:31 WNL Meds: Cephulac, D5 NS, Lasix, Protonix, Versed, Zofran Diet: NPO 2/2 GI bleed Weights: (11/12) 189# (11/13)189# Skin: intact. Giovanni: 12 Edema: trace to BUE Last BM: active bowel sounds with frequent loose stools Per Dr. Marcial note 11/14, pt on mechanical vent with CPAP trial being done but not ready for weaning and extubation. Pt with central line access, tube feeding per GI once NG tube is repositioned. Possible need to transfer to higher level of care and poss IR evaluation if pt continues to bleed. Per bed huddle this morning, pt had EGD on 11/10 with findings of varicies and portal hypertension. Observed pt laying in bed with police officers at bedside. Per RN, pt is not following commands and is refusing to do weaning parameters with no extubation at this time. RN to contact licensed social worker to see if pt will be transferred to a higher level of care. Per RN, Dr. Jasmine does not want to advance NGT possibly due to irritating stomach due to pt bleeding but he does want to start some TF. Ammonia levels were ordered, last ammonia level was 31 on 11/10. Estimated Nutritional Needs unchanged from prior assessment:Actual body weight 86kg Energy: 1932kcal/day ([id number]) Protein: 69-103g/day (.8-1.2g/day for cirrhosis) Fluid: 1.2-1.5L/day for ascites or per doctor Nutrition Diagnosis 1. Inadequate oral intake related to s/p intubation secondary to airway protection as evidenced by no TF order intitiated (not met) Intervention 1. If/when medically feasible and is nutrition support is warrented. Consider initiaiton of TF of Nutrihep at 10ml/hr increase q4hr to goal of 30ml/hr. This provides 1080kcal (meets 56% kcal needs) and 29g pro (meets 33% pro needs) and 547ml water. 2. Will re-assess pt as high risk. If pt is tolerating TF of Nutrihep then goal rate can be increased to 50ml/hr. This provides 1800 kcal (meets 93% kcal needs) and 48g pro (this meets 70% est pro needs) and 912ml water. Monitor/Evaluate Previous goal: NPO<5-7 days, diet advancement (not met) Goal: NPO<5-7 days, diet advancement Monitor: NPO status, diet advancement, Labs (ammonia), GI function F/U in 2-3 days as high risk: 11/15-
--- NOTE | 2016-11-13 15:52 | NUR ---
1. If/when medically feasible and is nutrition support is warrented. Consider initiaiton of TF of Nutrihep at 10ml/hr increase q4hr to goal of 30ml/hr. This provides 1080kcal (meets 56% kcal needs) and 29g pro (meets 33% pro needs) and 547ml water. 2. Will re-assess pt as high risk. If pt is tolerating TF of Nutrihep then goal rate can be increased to 50ml/hr. This provides 1800 kcal (meets 93% kcal needs) and 48g pro (this meets 70% est pro needs) and 912ml water. Monitor/Evaluate
--- NOTE | 2016-11-13 16:26 | NUR ---
PT HAD SMALL DARK BLOODY BM AT THIS TIME. PT CLEANSED AND NEW LINEN PROVIDED.
--- NOTE | 2016-11-13 16:40 | NUR ---
Pt SELF EXTUBATED AT THIS TIME. 3L N/C ADMINISTERED. WILL MONITOR.
--- NOTE | 2016-11-13 16:40 | NUR ---
PT SELF EXTUBATED AT THIS TIME, RESTRAINTS STILL IN PLACE. PT ON 2L NC AT THIS TIME SATING 100%. PT APPEARS IN NO RESP DISTRESS. NOTIFIED. PER DC ALL NARCOTICS. WILL NOTIFY .
--- NOTE | 2016-11-13 17:04 | NUR ---
MADE AWARE. NO NEW ORDERS AT THIS TIME.
--- NOTE | 2016-11-13 17:35 | NUR ---
PT ALERT AND ORIENTED TO SELF, BIRTHDAY BUT STATES HE IS IN [place] AND DOES NOT KNOW WHAT YEAR IT IS OR WHAT CITY HE IS IN. PT LAUGHS AT SELF AT THIS TIME. EXP WHEEZES AUDIBLE AT THIS TIME, CRESENCIO RT PAGED AT THIS TIME.
--- NOTE | 2016-11-13 19:02 | NUR ---
RECEIVED REPORT FROM CINTHYA SALCEDO, ALL QUESTIONS ADDRESSED, WILL ENDORSE CARE
--- NOTE | 2016-11-13 19:29 | NUR ---
PT ON NC 3L, AOX4, GENERALIZED WEAKNESS, DAN ACTIVE ROM DUE TO SOFT RESTRAINTS, FULL PASSIVE ROM, NO HEADACHE. NO DRAINAGE EENT, NO COUGH OR SECRETIONS, ORAL MUCOSA PINK AND DRY. RESPIRATIONS EQUAL AND UNLABORED, LUNGS CLEAR BUL, DIM BLL, NO S/S OF DISTRESS. HR 71, BP 142/85, MAP 109, CHEST WALL STABLE, NO CP, DIZZINESS, OR SYNCOPE. NO CONTRACTURES OR DEFORMITIES. NPO EXCEPT FOR MEDS, NO N/V. ABD SOFT, ROUND, NONTENDER, BOWEL SOUNDS ACTIVE, BM LOOSE AND DARK. F/C IN PLACE DRAINING TO GRAVITY, URINE YELLOW, NO PENIAL EDEMA OR DRAINAGE. CALM AND COOPPERATIVE, LETHARGIC. WILL CONTINUE TO MONITOR.
--- NOTE | 2016-11-13 22:18 | NUR ---
PT HAD ANOTHER BM, LOOSE AND DARK, WILL CONTINUE TO MONITOR
--- NOTE | 2016-11-13 23:30 | NUR ---
TITRATED NC O2 DC'D AT THIS TIME O2 SAT GREATER THAN 95% ON RA, WILL CONTINUE TO MONITOR
--- NOTE | 2016-11-13 23:30 | NUR ---
PT HAD ANOTHER BM DARK AND LOOSE, WILL CONTINUE TO MONITOR
--- NOTE | 2016-11-14 00:58 | NUR ---
SPOKE WITH DR DIETZ, ATIVAN AND MORPHINE REORDERED PT BECOMING AGITATED, WILL CONTINUE TO MONITOR
[2016-11-14 03:00] VITALS: BP 173/85
[2016-11-14 05:04] LABS: BASOPHIL % 0.6 % (0-2)
[2016-11-14 05:08] LABS: CALCIUM 7.3 mg/dL (8.5-10.1); CARBON DIOXIDE 26.1 mmol/L (21-32); CHLORIDE SERUM 111 mmol/L (98-107); CREATININE SERUM 0.9 mg/dL (0.7-1.3); GFR1 > 60 mL/min; GLUCOSE SERUM 105 mg/dL (74-106); SODIUM SERUM 142 mmol/L (136-145)
[2016-11-14 05:15] LABS: PLATELET COUNT 77 x10^3mcL (130-400); RED CELL DISTRIBUTION WIDTH 17.2 % (11.5-14.5)
--- NOTE | 2016-11-14 06:22 | NUR ---
PT GIVEN BED BATH CHG WIPES USED GOWN AND LINEN CHANGED, WILL CONTINUE TO MONITOR
--- NOTE | 2016-11-14 07:09 | NUR ---
REPORT GIVEN TO CINTHYA PALACIOS, ALL QUESTIONS ADDRESSED, WILL ENDORSE CARE
[2016-11-14 07:30] VITALS: BP 138/73
--- NOTE | 2016-11-14 07:45 | NUR ---
SULEIMAN CORONADO FROM [facility]END[facility], WILL CONTINUE TO MONITOR.
--- NOTE | 2016-11-14 09:13 | NUR ---
PATIENT ROUNDS WITH DR. LILLY AND RESIDENTS. CHARGE NURSE AND PRIMARY NURSE AT BEDSIDE. UPDATES PROVIDED AND POC DISCUSSED. WILL CONTINUE TO MONITOR.
--- NOTE | 2016-11-14 10:47 | NUR ---
PAGED TO REPORT POTASSIUM OF 3.0 WILL CONTINUE TO MONITOR.
--- NOTE | 2016-11-14 11:02 | NUR ---
SPOKE TO OVER THE PHONE AND MADE AWARE OF POSTASSIUM 3.0 AND SAID TO ORDER 40MEQ OF LIQUID PO POTASSIUM NOW AND ORDER ANOTHER 40MEQ LIQUID POTASSIUM PO IN 4 HRS, ALSO MADE AWARE OF AMMONIA LEVEL FROM 11/13/16 WHICH WAS 38 BUT PATIENT IS ON LACTULOSE, AND ALSO PATIENT IS IN AND OUT OF CONFUSION RIGHT NOW HE IS AAOX4 BP 140/84 HR 71 O2 SAT 95% RESPIRATIONS 18 NO NEW ORDERS, AND WILL FOLLOW POTASSIUM ORDERS AND WILL CONTINUE TO MONITOR.
[2016-11-14 12:00] VITALS: BP 143/84
--- NOTE | 2016-11-14 12:15 | NUR ---
PATIENT RECIEVING BREATHING TREATMENT AT BEDSIDE, WILL CONTINUE TO MONITOR.
--- NOTE | 2016-11-14 12:53 | NUR ---
UPDATES GIVEN TO , NO NEW ORDERS, AND WILL CONTINUE TO MONITOR.
--- NOTE | 2016-11-14 12:57 | NUR ---
PER DR.LIN FORD TO D/S TO [facility] ONCE BED IS AVAILABLE. WILL CONTINUE TO MONITOR.
--- NOTE | 2016-11-14 13:15 | NUR ---
SPOKE TO AND SAID TO D/C NG TUBE, AND PLACE ON FULL LIQUID DIET, WILL FOLLOW ORDERS AND WILL CONTINUE TO MONITOR.
--- NOTE | 2016-11-14 13:25 | NUR ---
PER TO KEEP O2 ON AT 2L AND AWARE O2 SAT 96% FOR TRANSFER TO [facility], AND DO BEDSIDE SWALLOW BEFORE FEEDING, WILL FOLLOW ORDERS AND WILL CONTINUE TO MONITOR.
--- NOTE | 2016-11-14 14:58 | NUR ---
PER TO KEEP NG UNTIL PATIENT IS MORE AWAKE, WILL FOLLOW ORDERS AND WILL CONTINUE TO MONITOR.
--- NOTE | 2016-11-14 15:29 | NUR ---
SANDOSTATIN RATE CHANGED TO 25ML/HR PER DOCTORS ORDER, WILL CONTINUE TO MONITOR.
[2016-11-14 15:30] VITALS: BP 126/88
--- NOTE | 2016-11-14 17:25 | NUR ---
REPORT GIVEN TO RAMANDEEP MENDES AT [facility], ALL QUESTIONS AND CONCERNS ADDRESSED, WILL CONTINUE TO MONITOR.
[2016-11-14 17:42] VITALS: BP 130/45
--- NOTE | 2016-11-14 17:54 | NUR ---
MADE AWARE PATIENT HAS AN ACCEPTING DR AT [facility], DR.YOUNG SIFUENTES IN BED 308B, SAID OK TO DISCHARGE, WILL FOLLOW ORDERS AND WILL CONTINUE TO MONITOR.
--- NOTE | 2016-11-14 18:30 | NUR ---
PATIENT DISCHARGED VIA [facility] ACCOMPANIED BY 4 CORRECTIONAL OFFICERS, PATIENTS NGT TO LEFT NARES PATENT, F/C FLOWING YELLOW COLORED URINE BY GRAVITY AND PATENT, PATIENTS RIJ SALINE LOCKED AND ALL PORTS PATENT, SALINE LOCK TO RH 20G PATENT, D/C IV TO RW DUE TO IT NOT FLUSHING AND CANNULA INTACT. PATIENT LEFT AWAKE AND ALERT BUT CONFUSED ORIENTED TO NAME AND TIME, REORIENTED TO PLACE, WILL CONTINUE TO MONITOR.
== END 2016-11-14 18:30 | disposition short-term general hospital (02) | DRG 208 ==
LOC: ED 09:37 → DU 11:09 → IC 11:09 → DU 11:50 → IC 16:30 → DU 18:56 → IC 18:58
PROVIDERS: Emergency Medicine; Internal Medicine Gastroenterology; ADMIT Internal Medicine
PROC: 0BH17EZ Insertion of Endotracheal Airway into Trachea, Via Natural or Artificial Opening (ICD-10-PCS; 2016-11-10)
PROC: 0BH17EZ Insertion of Endotracheal Airway into Trachea, Via Natural or Artificial Opening (ICD-10-PCS; 2016-11-10)
PROC: 5A1945Z Respiratory Ventilation, 24-96 Consecutive Hours (ICD-10-PCS; principal; 2016-11-10 07:00)
PROC: 06L34CZ Occlusion of Esophageal Vein with Extraluminal Device, Percutaneous Endoscopic Approach (ICD-10-PCS; 2016-11-10 07:00)
PROC: 30233N1 Transfusion of Nonautologous Red Blood Cells into Peripheral Vein, Percutaneous Approach (ICD-10-PCS; 2016-11-11)
PROC: 02HV33Z Insertion of Infusion Device into Superior Vena Cava, Percutaneous Approach (ICD-10-PCS; 2016-11-12)
DX: J96.01 Acute respiratory failure with hypoxia (principal); I85.11 Secondary esophageal varices with bleeding; G93.41 Metabolic encephalopathy; J69.0 Pneumonitis due to inhalation of food and vomit; N17.0 Acute kidney failure with tubular necrosis; K76.6 Portal hypertension; R18.8 Other ascites; D62 Acute posthemorrhagic anemia; K74.69 Other cirrhosis of liver; B18.2 Chronic viral hepatitis C; I10 Essential (primary) hypertension; E88.09 Other disorders of plasma-protein metabolism, not elsewhere classified; E78.5 Hyperlipidemia, unspecified; E66.9 Obesity, unspecified; J44.9 Chronic obstructive pulmonary disease, unspecified; Z79.899 Other long term (current) drug therapy; Z88.6 Allergy status to analgesic agent; Z88.5 Allergy status to narcotic agent; Z68.29 Body mass index [BMI] 29.0-29.9, adult
CPT/HCPCS: 36556; 36600; 43235; 83880; 97110-GP; A4628; C9113; G0480; J1200; J1364; J1610; J1642; J1800; J1940; J1953; J2060; J2250; J2270; J2310; J2354; J2405; J2543; J2550; J3010; J3370; J3490; J7030; J7040; J7042; J7050; J7620; P9016; Q0092

== ENCOUNTER 2017-06-14 09:16 | Inpatient (IN) | payer OTHER ==
[~2017-06-14] VITALS: Ht 172.7 cm; Wt 88.0 kg
[~2017-06-14 09:16] MED LIST: FUROSEMIDE40 MG PO; LACTULOSE10 GM/152 PO; LISINOPRIL40 MG PO; ONMEL200 MG PO; PROPRANOLOL HCL20 MG PO
[2017-06-14] MEDS ORDERED: KEPPRA500 MG PO (09:47)
[2017-06-14] MEDS ORDERED: TRAMADOL HCL50 MG PO (09:47)
[2017-06-14] MEDS ORDERED: LASIX40 MG PO (09:48)
[2017-06-14] MEDS ORDERED: ALDACTONE50 MG PO (09:49)
[2017-06-14] MEDS ORDERED: KRISTALOSE20 GM PO (09:49)
[2017-06-14] MEDS ORDERED: PROTONIX40 MG PO (09:50)
[2017-06-14] MEDS ORDERED: NATURE'S BLEND F1 MG PO (09:50)
[2017-06-14] MEDS ORDERED: PROPRANOLOL HCL20 MG PO (09:50)
[2017-06-14 09:55] LABS: BASOPHIL % 0.5 % (0-2)
[2017-06-14 09:57] LABS: PLATELET COUNT 67 x10^3mcL (130-400); RED CELL DISTRIBUTION WIDTH 15.8 % (11.5-14.5)
[2017-06-14 10:07] LABS: CALCIUM 7.8 mg/dL (8.5-10.1); CHLORIDE SERUM 101 mmol/L (98-107); CREATININE SERUM 0.9 mg/dL (0.7-1.3); GFR1 > 60 mL/min; GLUCOSE SERUM 145 mg/dL (74-106); SODIUM SERUM 134 mmol/L (136-145)
[2017-06-14 10:12] LABS: ALKALINE PHOSPHATASE 105 U/L (46-116); ALT/SGPT 31 U/L (16-63); AST/SGOT 32 U/L (15-37); BILIRUBIN TOTAL 1.3 mg/dL (0.20-1.00); LIPASE 165 IU/L (73-393); TOTAL PROTEIN, SERUM 7.5 g/dL (6.4-8.2)
[2017-06-14 10:13] LABS: ALBUMIN 2.7 g/dL (3.4-5.0)
[2017-06-14 12:33] VITALS: BP 153/72
[2017-06-14 13:26] VITALS: BP 153/72
[2017-06-14 16:51] LABS: UA SPECIFIC GRAVITY <=1.005 (1.005-1.035); microscopic required? YES; urine erythrocyte 2+ (NEGATIVE)
[2017-06-14 17:55] VITALS: BP 150/61
[2017-06-14 20:08] VITALS: BP 132/63
[2017-06-14 21:51] VITALS: BP 141/71
[2017-06-15 06:00] VITALS: BP 141/75
[2017-06-15 09:03] VITALS: BP 123/70
[2017-06-15 14:26] VITALS: BP 107/64
[2017-06-15 18:20] VITALS: BP 109/64
[2017-06-15 21:30] VITALS: BP 112/68
[2017-06-16] VITALS (10 sets, daily range): BP systolic 98–138; BP diastolic 52–79; Ht 172.7 cm; Wt 88.0 kg
[2017-06-16 17:00] LABS: SOURCE FLUID PLEURAL
[2017-06-17 05:43] VITALS: BP 121/63
[2017-06-17 06:22] LABS: CALCIUM 8.3 mg/dL (8.5-10.1); CARBON DIOXIDE 26.3 mmol/L (21-32); CHLORIDE SERUM 102 mmol/L (98-107); CREATININE SERUM 0.9 mg/dL (0.7-1.3); GFR1 > 60 mL/min; GLUCOSE SERUM 92 mg/dL (74-106); POTASSIUM SERUM 4.4 mmol/L (3.5-5.1); SODIUM SERUM 135 mmol/L (136-145)
[2017-06-17 08:59] LABS: BASOPHIL % 0.7 % (0-2)
[2017-06-17 09:02] LABS: PLATELET COUNT 75 x10^3mcL (130-400); RED CELL DISTRIBUTION WIDTH 16.8 % (11.5-14.5)
[2017-06-17 09:50] VITALS: BP 109/67
[2017-06-17 12:59] VITALS: BP 114/66
[2017-06-17 17:11] VITALS: BP 107/64
[2017-06-17 19:35] VITALS: BP 103/66
[2017-06-18 06:02] VITALS: BP 106/68
[2017-06-18 10:16] VITALS: BP 114/68
[2017-06-18 11:09] LABS: PLATELET COUNT 85 x10^3mcL (130-400); RED CELL DISTRIBUTION WIDTH 16.2 % (11.5-14.5)
[2017-06-18 11:41] LABS: ALKALINE PHOSPHATASE 108 U/L (46-116); ALT/SGPT 25 U/L (16-63); AST/SGOT 27 U/L (15-37); BILIRUBIN TOTAL 0.6 mg/dL (0.20-1.00); CALCIUM 8.3 mg/dL (8.5-10.1); CARBON DIOXIDE 29.1 mmol/L (21-32); CHLORIDE SERUM 102 mmol/L (98-107); GFR1 > 60 mL/min; GLUCOSE SERUM 102 mg/dL (74-106); POTASSIUM SERUM 4.5 mmol/L (3.5-5.1); SODIUM SERUM 135 mmol/L (136-145); TOTAL PROTEIN, SERUM 7.6 g/dL (6.4-8.2)
[2017-06-18 12:08] LABS: ALBUMIN 2.6 g/dL (3.4-5.0)
[2017-06-18 14:23] VITALS: BP 109/65
[2017-06-18 15:48] VITALS: BP 109/65
[2017-06-18 17:42] VITALS: BP 119/70
== END 2017-06-18 18:55 | disposition other institution (70) | DRG 177 ==
LOC: ED 09:16 → DU 10:01
PROVIDERS: Emergency Medicine; Internal Medicine
PROC: 0W993ZZ Drainage of Right Pleural Cavity, Percutaneous Approach (ICD-10-PCS; principal; 2017-06-16)
DX: J69.0 Pneumonitis due to inhalation of food and vomit (principal); J96.01 Acute respiratory failure with hypoxia; J90 Pleural effusion, not elsewhere classified; Z88.6 Allergy status to analgesic agent; Z88.8 Allergy status to other drugs, medicaments and biological substances; J44.9 Chronic obstructive pulmonary disease, unspecified; B19.20 Unspecified viral hepatitis C without hepatic coma; K74.60 Unspecified cirrhosis of liver; G40.909 Epilepsy, unspecified, not intractable, without status epilepticus; I11.0 Hypertensive heart disease with heart failure; I50.9 Heart failure, unspecified
CPT/HCPCS: 32555; 83880; 94150; C1729; J0696; J2001; J2270; J2543; J2930; J3010; J3490; J7050; J7613; J7620; J7644; Q0092

== ENCOUNTER 2017-06-25 11:58 | Inpatient (IN) | payer OTHER ==
[~2017-06-25] VITALS: Ht 172.7 cm; Wt 82.1 kg
[~2017-06-25 11:58] MED LIST changes: +ALDACTONE50 MG PO; +KEPPRA500 MG PO; +KRISTALOSE20 GM PO; +LASIX40 MG PO; +NATURE'S BLEND F1 MG PO; +PROTONIX40 MG PO; +TRAMADOL HCL50 MG PO
[2017-06-25 12:05] VITALS: Ht 172.7 cm; Wt 82.1 kg
[2017-06-25 12:50] LABS: BASOPHIL % 0.8 % (0-2)
[2017-06-25 12:55] LABS: PLATELET COUNT 91 x10^3mcL (130-400); RED CELL DISTRIBUTION WIDTH 15.9 % (11.5-14.5)
[2017-06-25 13:51] LABS: CALCIUM 8.9 mg/dL (8.5-10.1); CARBON DIOXIDE 21.4 mmol/L (21-32); CHLORIDE SERUM 102 mmol/L (98-107); CREATININE SERUM 0.8 mg/dL (0.7-1.3); GFR1 > 60 mL/min; GLUCOSE SERUM 99 mg/dL (74-106); POTASSIUM SERUM 4.5 mmol/L (3.5-5.1); SODIUM SERUM 135 mmol/L (136-145)
[2017-06-25 13:55] LABS: ALKALINE PHOSPHATASE 123 U/L (46-116); ALT/SGPT 30 U/L (16-63); AST/SGOT 37 U/L (15-37); BILIRUBIN TOTAL 0.91 mg/dL (0.20-1.00); LIPASE 563 IU/L (73-393)
[2017-06-25 13:56] LABS: TOTAL PROTEIN, SERUM 8.9 g/dL (6.4-8.2)
[2017-06-25 13:57] LABS: ALBUMIN 3.1 g/dL (3.4-5.0)
[2017-06-25 15:01] VITALS: BP 133/54
[2017-06-25 17:11] VITALS: BP 154/79
[2017-06-25 20:11] VITALS: BP 98/58
[2017-06-26 07:13] LABS: BASOPHIL % 0.9 % (0-2)
[2017-06-26 07:17] LABS: PLATELET COUNT 69 x10^3mcL (130-400)
[2017-06-26 07:19] LABS: T4(THYROXINE) 5.2 ug/dL (4.7-13.3)
[2017-06-26 08:51] LABS: ERYTHROCYTE SED RATE 35 mm/hr (0-20)
[2017-06-26 09:26] VITALS: BP 113/65
[2017-06-26 12:52] VITALS: BP 94/65
[2017-06-26 18:24] VITALS: BP 112/63
[2017-06-26 20:17] VITALS: BP 110/59
[2017-06-27] VITALS (7 sets, daily range): BP systolic 97–123; BP diastolic 54–76
[2017-06-27 04:26] LABS: RAPID PLASMA REAGIN Non Reactive (Non Reactive)
[2017-06-27 09:17] LABS: RHEUMATOID ARTHRITIS FACTOR <10.0 IU/mL (0.0-13.9)
[2017-06-27 17:20] LABS: SOURCE FLUID PLEURAL
[2017-06-28 06:07] VITALS: BP 98/61
[2017-06-28 06:56] LABS: CALCIUM 8.5 mg/dL (8.5-10.1); CARBON DIOXIDE 29.5 mmol/L (21-32); CHLORIDE SERUM 106 mmol/L (98-107); CREATININE SERUM 0.9 mg/dL (0.7-1.3); GFR1 > 60 mL/min; GLUCOSE SERUM 87 mg/dL (74-106); POTASSIUM SERUM 4.7 mmol/L (3.5-5.1); SODIUM SERUM 140 mmol/L (136-145)
[2017-06-28 07:00] LABS: BASOPHIL % 0.5 % (0-2)
[2017-06-28 07:41] LABS: PLATELET COUNT 68 x10^3mcL (130-400); RED CELL DISTRIBUTION WIDTH 16.1 % (11.5-14.5)
[2017-06-28 09:25] VITALS: BP 108/66
[2017-06-28 12:46] VITALS: BP 108/66
[2017-06-28 13:00] VITALS: BP 113/63
[2017-06-28 14:24] VITALS: BP 108/66
[2017-06-28 17:12] VITALS: BP 107/62
== END 2017-06-28 18:05 | disposition other institution (70) | DRG 438 ==
LOC: ED 11:58 → DU 14:12 → ED 14:15 → DU 14:55
PROVIDERS: Emergency Medicine; Internal Medicine
PROC: 0W993ZZ Drainage of Right Pleural Cavity, Percutaneous Approach (ICD-10-PCS; principal; 2017-06-27)
DX: K85.90 Acute pancreatitis without necrosis or infection, unspecified (principal); G93.41 Metabolic encephalopathy; J96.90 Respiratory failure, unspecified, unspecified whether with hypoxia or hypercapnia; J44.1 Chronic obstructive pulmonary disease with (acute) exacerbation; J90 Pleural effusion, not elsewhere classified; R55 Syncope and collapse; D63.8 Anemia in other chronic diseases classified elsewhere; K74.69 Other cirrhosis of liver; B19.20 Unspecified viral hepatitis C without hepatic coma; Z88.5 Allergy status to narcotic agent; Z88.8 Allergy status to other drugs, medicaments and biological substances
CPT/HCPCS: 32555; 78226; 83880; 86431; 94150; A9537; J0696; J2001; J2270; J2550; J3010; J7030; J7620; J7626; J8597; Q0092

== ENCOUNTER 2017-12-07 18:24 | Inpatient (IN) | payer OTHER ==
[~2017-12-07] VITALS: Ht 172.7 cm; Wt 83.5 kg
[2017-12-07 19:50] LABS: BASOPHIL % 0.5 % (0-2)
[2017-12-07 19:57] LABS: CALCIUM 8.7 mg/dL (8.5-10.1); CARBON DIOXIDE 19.3 mmol/L (21-32); CHLORIDE SERUM 109 mmol/L (98-107); GFR1 > 60 mL/min; GLUCOSE SERUM 96 mg/dL (74-106); POTASSIUM SERUM 3.6 mmol/L (3.5-5.1); SODIUM SERUM 139 mmol/L (136-145)
[2017-12-07 19:58] LABS: PLATELET COUNT 76 x10^3mcL (130-400)
[2017-12-07 20:01] LABS: ALKALINE PHOSPHATASE 121 U/L (46-116); ALT/SGPT 37 U/L (16-63); AST/SGOT 39 U/L (15-37); TOTAL PROTEIN, SERUM 7.4 g/dL (6.4-8.2)
[2017-12-07] MEDS ORDERED: FERROUS SULFAT325 M2 PO (20:24)
[2017-12-07] MEDS ORDERED: XIFAXAN550 M1 PO (20:25)
[2017-12-07] MEDS ORDERED: LACTULOSE10 GM/152 PO (20:25)
[2017-12-07] MEDS ORDERED: KEPPRA500 MG PO (20:25)
[2017-12-07] MEDS ORDERED: FUROSEMIDE40 MG PO (20:27)
[2017-12-07] MEDS ORDERED: NATURE'S BLEND F1 MG PO (20:27)
[2017-12-07] MEDS ORDERED: SPIRONOLACTONE100 MG PO (20:28)
[2017-12-07] MEDS ORDERED: PANTOPRAZOLE SO40 M1 PO (20:28)
[2017-12-07 21:34] VITALS: BP 127/62
[2017-12-07 21:34] LABS: UA SPECIFIC GRAVITY >=1.030 (1.005-1.035); microscopic required? YES; urine erythrocyte TRACE (NEGATIVE)
[2017-12-07 21:36] VITALS: Ht 172.7 cm; Wt 83.5 kg
[2017-12-07 22:05] LABS: AMPHETAMINE QUAL UR NONE DETECTED (See below)
[2017-12-08 05:42] VITALS: BP 134/63
[2017-12-08 07:38] VITALS: BP 101/69
[2017-12-08 09:14] VITALS: BP 100/59
[2017-12-08 10:41] LABS: PLATELET COUNT 63 x10^3mcL (130-400); RED CELL DISTRIBUTION WIDTH 15.1 % (11.5-14.5)
[2017-12-08 11:02] LABS: CALCIUM 8.5 mg/dL (8.5-10.1); CARBON DIOXIDE 19.7 mmol/L (21-32); CHLORIDE SERUM 111 mmol/L (98-107); GFR1 > 60 mL/min; GLUCOSE SERUM 113 mg/dL (74-106); POTASSIUM SERUM 3.8 mmol/L (3.5-5.1); SODIUM SERUM 143 mmol/L (136-145)
[2017-12-08 12:57] VITALS: BP 128/61
[2017-12-08 16:57] VITALS: BP 119/69
[2017-12-08 21:02] VITALS: BP 120/72
[2017-12-09 05:53] VITALS: BP 97/52
[2017-12-09 09:36] VITALS: BP 102/54
[2017-12-09 16:00] VITALS: BP 106/60
== END 2017-12-09 20:35 | disposition other institution (70) | DRG 441 ==
LOC: ED 18:24 → DU 20:24
PROVIDERS: Emergency Medicine; Internal Medicine
DX: K72.90 Hepatic failure, unspecified without coma (principal); G93.41 Metabolic encephalopathy; R18.8 Other ascites; K76.6 Portal hypertension; J44.9 Chronic obstructive pulmonary disease, unspecified; I10 Essential (primary) hypertension; E86.0 Dehydration; K21.9 Gastro-esophageal reflux disease without esophagitis; G89.29 Other chronic pain; B19.20 Unspecified viral hepatitis C without hepatic coma; I25.10 Atherosclerotic heart disease of native coronary artery without angina pectoris; K74.60 Unspecified cirrhosis of liver; Z88.5 Allergy status to narcotic agent; Z88.8 Allergy status to other drugs, medicaments and biological substances; Z79.899 Other long term (current) drug therapy
CPT/HCPCS: G0480; J2060; J2550; Q0092